=== PATIENT | male | born 1970 | race Caucasian/White ===

== ENCOUNTER 2019-04-15 00:37 | Emergency (ER) | payer MEDICAID ==
--- NOTE | 2019-04-15 00:54 | ED Physician Documentation ---
PD HPI DYSPNEA - Stated complaint Stated Complaint: SOA/CONGESTION - Chief complaint Chief Complaint: Resp - History obtained from History obtained from: Patient - History of Present Illness Timing - onset: How many weeks ago (1) Timing - details: Gradual onset Pain level now: 7 Improved by: Other (no ameliorating factors) Worsened by: Coughing, Other (deep inhalation) Associated symptoms: Fever (tactile/subjective (did not take temperature, but feels as though he's had fever, and s.o. says he has felt hot to touch)), Cough, Chest pain / discomfort. 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 denies: Palpitations, Pedal edema, Calf pain Respiratory: reports: Cough. denies: Dyspnea, Hemoptysis, Wheezing GI: reports: Reviewed and negative PD PAST MEDICAL HISTORY - Past Medical History Past Medical History: No - Present Medications Home Medications: Ambulatory Orders Medication Instructions Recorded Confirmed Benzonatate [Tessalon Perle] 100 - 200 mg PO TID PRN #30 capsule 04/15/19 Citalopram Hydrobromide [Celexa] 60 mg PO DAILY 04/15/19 04/15/19 Gabapentin [Neurontin] 300 mg PO BID 04/15/19 04/15/19 Hydrocodone/Acetaminophen 1 tab PO Q6HR PRN 04/15/19 04/15/19 [Hydrocodone-Acetamin 5-325 mg] Ibuprofen 800 mg PO TID 04/15/19 04/15/19 [place] 300 mg PO BID 04/15/19 04/15/19 Methocarbamol [Robaxin] 500 mg PO TID 04/15/19 04/15/19 - Allergies Allergies/Adverse Reactions: Allergies Allergy/AdvReac Type Severity Reaction Status Date / Time metoclopramide [From Reglan] Allergy Unknown Verified 04/15/19 00:46 - Living Situation Living Arrangement: reports: At home PD ED PE NORMAL - Vitals Vital signs reviewed: Yes - General General: Alert and oriented X 3, No acute distress, Well developed/nourished - HEENT HEENT: Moist mucous membranes, Pharynx benign - Neck Neck: Supple, no meningeal sign - Cardiac Cardiac: RRR, No murmur - Respiratory Respiratory: No respiratory distress, Clear bilaterally - Extremities Extremities: No edema Results - Vitals Vitals: Vital Signs - 24 hr 04/15/19 04/15/19 04/15/19 00:40 01:06 02:02 Temperature 36.5 C Heart Rate 82 85 86 Respiratory 18 16 19 Rate Blood Pressure 131/84 H 132/91 H 134/95 H O2 Saturation 98 97 96 04/15/19 04/15/19 02:59 03:40 Temperature Heart Rate 93 87 Respiratory 17 20 Rate Blood Pressure 128/98 H 140/87 H O2 Saturation 97 94 Oxygen O2 Source Room air - EKG (time done) No standard instances Rate: Rate (enter#) (46) Rhythm: NSR [place]: Normal Intervals: Normal [place] QRS: Normal Ischemia: Normal ST segments - Labs Labs: Laboratory Tests 04/15/19 04/15/19 04/15/19 00:55 00:55 00:55 WBC 7.8 RBC 4.24 L Hgb 13.3 L Hct 40.3 L MCV 95.0 H MCH 31.4 H MCHC 33.0 RDW 13.6 Plt Count 310 MPV 10.2 Neut # (Auto) 4.1 Lymph # (Auto) 2.3 [place] # (Auto) 0.6 Eos # (Auto) 0.7 Baso # (Auto) 0.1 Absolute Nucleated RBC 0.00 Nucleated RBC % 0.0 D-Dimer < 200.0 L Sodium 138 Potassium 4.6 Chloride 103 Carbon Dioxide 27 Anion Gap 8.0 BUN 12 Creatinine 1.0 Estimated GFR (MDRD) 79 L Glucose 143 H Calcium 9.2 Total Bilirubin 0.6 AST 25 ALT 32 Alkaline Phosphatase 53 Troponin I High Sens Total Protein 7.2 Albumin 4.3 Globulin 2.9 Albumin/Globulin Ratio 1.5 Lipase 31 04/15/19 00:55 WBC RBC Hgb Hct MCV MCH MCHC RDW Plt Count MPV Neut # (Auto) Lymph # (Auto) [place] # (Auto) Eos # (Auto) Baso # (Auto) Absolute Nucleated RBC Nucleated RBC % D-Dimer Sodium Potassium Chloride Carbon Dioxide Anion Gap BUN Creatinine Estimated GFR (MDRD) Glucose Calcium Total Bilirubin AST ALT Alkaline Phosphatase Troponin I High Sens 4.3 Total Protein Albumin Globulin Albumin/Globulin Ratio Lipase - Rads (name of study) chest xray Radiology: Prelim report reviewed, See rad report PD MEDICAL DECISION MAKING - ED course Complexity details: reviewed results, re-evaluated patient, considered differential, d/w patient ED course: reassuring test results including EKG, blood tests (including troponin and d- dimer), and cxr. Suspect bronchitis with pleurisy. He is already taking vicodin on a regular basis (filled #120 5/325 on 04/12/2019) and taking ibuprofen. He is not requesting pain medication and is polite and pleasant. Departure - Departure Disposition: 01 Home, Self Care Clinical Impression: Bronchitis Condition: Good Instructions: ED Upper Resp Infec No Abx Tx Prescriptions: Benzonatate [Tessalon Perle] 100 - 200 mg PO TID PRN #30 capsule PRN Reason: Cough Discharge Date/Time: 04/15/19 03:42
[2019-04-15 01:10] LABS: BASOPHILS # (AUTO) 0.1 10^3/uL (0.0-0.1); EOSINOPHILS # (AUTO) 0.7 10^3/uL (0.0-0.7); EOSINOPHILS % (AUTO) 8.4 %; HGB - HEMOGLOBIN 13.3 g/dL (14.0-18.0); LYMPHOCYTES # (AUTO) 2.3 10^3/uL (1.5-3.5); LYMPHOCYTES % (AUTO) 29.4 %; MEAN CORPUSCULAR HEMOGLOBIN 31.4 pg (27.0-31.0); MEAN PLATELET VOLUME 10.2 fL (7.4-11.4); MONOCYTES # (AUTO) 0.6 10^3/uL (0.0-1.0); MONOCYTES % (AUTO) 7.7 %; NEUTROPHILS # (AUTO) 4.1 10^3/uL (1.5-6.6); NEUTROPHILS % (AUTO) 52.9 %; PLT - PLATELET COUNT 310 10^3/uL (130-450); RED BLOOD COUNT 4.24 10^6/uL (4.70-6.10); RED CELL DISTRIBUTION WIDTH 13.6 % (12.0-15.0); WHITE BLOOD COUNT 7.8 x10^3/uL (4.8-10.8)
[2019-04-15 01:19] LABS: ALBUMIN 4.3 g/dL (3.2-5.5); ALBUMIN/GLOBULIN RATIO 1.5 (1.0-2.2); BILIRUBIN,TOTAL 0.6 mg/dL (0.2-1.0); CALCIUM 9.2 mg/dL (8.5-10.3); TOTAL PROTEIN 7.2 g/dL (6.7-8.2)
--- NOTE | 2019-04-15 02:52 | XRAY Report ---
Reason: chest pain, dyspnea Procedure Date: 04/15/2019 Accession Number: [id number] / [id number] Procedure: XR - Chest 2 View X-Ray CPT Code: 28836 Final Report FULL RESULT: EXAM: CHEST RADIOGRAPHY EXAM DATE: 04/15/2019 02:27 AM. CLINICAL HISTORY: Chest pain, dyspnea. COMPARISON: None. TECHNIQUE: 2 views. FINDINGS: Lungs/Pleura: No focal opacities evident. No pleural effusion. No pneumothorax. Normal volumes. Mediastinum: Heart and mediastinal contours are unremarkable. Other: None. IMPRESSION: Normal 2-view chest radiography. RADIA
[2019-04-15] MEDS ORDERED: BENZONATATE 100 MG CAPSULE PO STA (03:35)
[2019-04-15 03:40] VITALS: BP 140/87
== END 2019-04-15 03:42 | disposition home or self-care (01) ==
LOC: ED 00:37
DX: J40 Bronchitis, not specified as acute or chronic (principal); R07.81 Pleurodynia
CPT/HCPCS: 36415; 71046; 80053; 83690; 84484; 85025; 85379; 93005; 99284; A9270

== ENCOUNTER 2019-05-02 17:30 | Emergency (ER) | payer MEDICAID ==
--- NOTE | 2019-05-02 17:51 | XRAY Report ---
Reason: chest pain Procedure Date: 05/02/2019 Accession Number: [id number] / [id number] Procedure: XR - Chest 1 View X-Ray CPT Code: 76936 Final Report FULL RESULT: EXAM: CHEST RADIOGRAPHY EXAM DATE: 05/02/2019 05:43 PM. CLINICAL HISTORY: Chest pain. COMPARISON: CHEST 2 VIEW 04/15/2019 2:18 AM. TECHNIQUE: 1 view. FINDINGS: Lungs/Pleura: No focal opacities evident. No pleural effusion. No pneumothorax. Mediastinum: Within exam limitations, the cardiomediastinal contour is normal. Other: None. IMPRESSION: Normal single view chest. RADIA
[2019-05-02 17:56] LABS: BASOPHILS # (AUTO) 0.1 10^3/uL (0.0-0.1); BASOPHILS % (AUTO) 0.7 %; EOSINOPHILS # (AUTO) 0.5 10^3/uL (0.0-0.7); EOSINOPHILS % (AUTO) 3.9 %; HGB - HEMOGLOBIN 15.3 g/dL (14.0-18.0); LYMPHOCYTES # (AUTO) 3.1 10^3/uL (1.5-3.5); LYMPHOCYTES % (AUTO) 24.8 %; MEAN CORPUSCULAR HEMOGLOBIN 31.3 pg (27.0-31.0); MEAN CORPUSCULAR HGB CONC 33.6 g/dL (32.0-36.0); MEAN PLATELET VOLUME 9.7 fL (7.4-11.4); MONOCYTES # (AUTO) 0.8 10^3/uL (0.0-1.0); MONOCYTES % (AUTO) 6.1 %; NEUTROPHILS % (AUTO) 63.9 %; PLT - PLATELET COUNT 441 10^3/uL (130-450); RED BLOOD COUNT 4.89 10^6/uL (4.70-6.10); RED CELL DISTRIBUTION WIDTH 13.5 % (12.0-15.0); WHITE BLOOD COUNT 12.5 x10^3/uL (4.8-10.8)
[2019-05-02 18:12] LABS: ALBUMIN 4.6 g/dL (3.2-5.5); ALBUMIN/GLOBULIN RATIO 1.5 (1.0-2.2); BILIRUBIN,TOTAL 0.2 mg/dL (0.2-1.0); CALCIUM 9.1 mg/dL (8.5-10.3); TOTAL PROTEIN 7.7 g/dL (6.7-8.2)
[2019-05-02] MEDS ORDERED: ASPIRIN CHEW 81 MG TABLET PO STA (18:17)
[2019-05-02] MEDS: NITROGLYCERIN SL 0.4 MG TABLET SL STA ×2 (18:21→18:27)
[2019-05-02] MEDS: MORPHINE 2 MG/ML CARPUJECT IVP STA ×2 (18:33)
--- NOTE | 2019-05-02 18:36 | ED Physician Documentation ---
PD HPI CHEST PAIN - Stated complaint Stated Complaint: CP - Chief complaint Chief Complaint: Cardiac - History obtained from History obtained from: Patient, Family - History of Present Illness Timing - onset: Today (At about 130 today he developed a sharp chest pain anterior lower left radiating to the left shoulder but not the back. Its associated with sweatiness but no shortness of breath, dizziness, or nausea. Is never had this before. No recent travel. It is been constant and slightly worsening since this afternoon. No history of heart issues.) Review of Systems Constitutional: denies: Fever, Chills Throat: denies: Sore throat Cardiac: reports: Chest pain / pressure. denies: Palpitations Respiratory: denies: Dyspnea, Cough GI: denies: Abdominal Pain, Nausea, Vomiting PD PAST MEDICAL HISTORY - Past Medical History Past Medical History: Yes Cardiovascular: None Respiratory: None Endocrine/Autoimmune: None GI: None : None HEENT: None Psych: Depression, Anxiety, Bipolar disorder, Post traumatic stress disorder Musculoskeletal: Osteoarthritis Derm: None - Past Surgical History Past Surgical History: Yes General: Appendectomy Ortho: Spine surgery, Other - Present Medications Home Medications: Ambulatory Orders Medication Instructions Recorded Confirmed Benzonatate [Tessalon Perle] 100 - 200 mg PO TID PRN #30 capsule 04/15/19 Citalopram Hydrobromide [Celexa] 60 mg PO DAILY 04/15/19 04/15/19 Gabapentin [Neurontin] 300 mg PO BID 04/15/19 04/15/19 Hydrocodone/Acetaminophen 1 tab PO Q6HR PRN 04/15/19 04/15/19 [Hydrocodone-Acetamin 5-325 mg] Ibuprofen 800 mg PO TID 04/15/19 04/15/19 [place] 300 mg PO BID 04/15/19 04/15/19 Methocarbamol [Robaxin] 500 mg PO TID 04/15/19 04/15/19 - Allergies Allergies/Adverse Reactions: Allergies Allergy/AdvReac Type Severity Reaction Status Date / Time metoclopramide [From Reglan] Allergy Unknown Verified 05/02/19 17:37 - Social History Does the pt smoke?: No Smoking Status: Former smoker Does the pt drink ETOH?: No Does the pt have substance abuse?: No - Immunizations Immunizations are current?: Yes - POLST Patient has POLST: No PD ED PE NORMAL - Vitals Vital signs reviewed: Yes - General General: Alert and oriented X 3, No acute distress - HEENT HEENT: PERRL, EOMI, Ears normal, Pharynx benign - Neck Neck: Supple, no meningeal sign, No bony TTP - Cardiac Cardiac: RRR, No murmur - Respiratory Respiratory: No respiratory distress, Clear bilaterally - Abdomen Abdomen: Non tender - Back Back: No CVA TTP, No spinal TTP - Extremities Extremities: No edema, No calf tenderness / cord - Neuro Neuro: Alert and oriented X 3, Normal speech Results - Vitals Vitals: Vital Signs - 24 hr 05/02/19 05/02/19 05/02/19 17:37 18:05 18:26 Temperature 37 C 37 C Heart Rate 105 H 104 H 95 Respiratory 17 14 12 Rate Blood Pressure 169/91 H 155/112 H 126/102 H O2 Saturation 100 99 98 05/02/19 05/02/19 05/02/19 18:34 18:53 19:19 Temperature 37 C Heart Rate 104 H 89 96 Respiratory 12 16 12 Rate Blood Pressure 136/78 H 136/78 H 115/75 O2 Saturation 97 98 99 05/02/19 20:00 Temperature Heart Rate 71 Respiratory Rate Blood Pressure 111/90 H O2 Saturation 98 Oxygen O2 Source Room air - EKG (time done) 1733 Rate: Rate (enter#) (103) Rhythm: Sinus tachycardia [place]: Normal Intervals: Normal [place] QRS: Normal Ischemia: Normal ST segments Computer interpretation: Agree with computer - Labs Labs: Laboratory Tests 05/02/19 05/02/19 05/02/19 17:37 17:50 17:50 WBC 12.5 H RBC 4.89 Hgb 15.3 Hct 45.5 MCV 93.0 MCH 31.3 H MCHC 33.6 RDW 13.5 Plt Count 441 MPV 9.7 Neut # (Auto) 8.0 H Lymph # (Auto) 3.1 [place] # (Auto) 0.8 Eos # (Auto) 0.5 Baso # (Auto) 0.1 Absolute Nucleated RBC 0.00 Nucleated RBC % 0.0 D-Dimer Sodium 138 Potassium 3.8 Chloride 104 Carbon Dioxide 25 Anion Gap 9.0 BUN 20 Creatinine 1.0 Estimated GFR (MDRD) 79 L Glucose 130 H Calcium 9.1 Total Bilirubin 0.2 AST 20 ALT 30 Alkaline Phosphatase 67 Troponin I High Sens 3.1 Total Protein 7.7 Albumin 4.6 Globulin 3.1 Albumin/Globulin Ratio 1.5 Lipase 38 05/02/19 05/02/19 17:50 19:48 WBC RBC Hgb Hct MCV MCH MCHC RDW Plt Count MPV Neut # (Auto) Lymph # (Auto) [place] # (Auto) Eos # (Auto) Baso # (Auto) Absolute Nucleated RBC Nucleated RBC % D-Dimer < 200.0 L Sodium Potassium Chloride Carbon Dioxide Anion Gap BUN Creatinine Estimated GFR (MDRD) Glucose Calcium Total Bilirubin AST ALT Alkaline Phosphatase Troponin I High Sens 2.7 Total Protein Albumin Globulin Albumin/Globulin Ratio Lipase PD MEDICAL DECISION MAKING - ED course ED course: 48-year-old gentleman presents with chest pain that is been going on for several hours now, his EKG is nonischemic. He is a little tachycardic, initial troponin and d-dimer were negative. Given the severity of the pain he was kept around for another troponin after couple of hours which was also negative. Chest x-ray was negative. ED i.e. reviewed, 16th emergency department visit in the last 12 months for a variety of complaints including chest pain and psychiatric issues, also note per the CONSERVATION WORKER he gets a fair amount of hydrocodone from his primary care physician every month, usually 180 to 200 pills, last fill was on the and he admits he is out. Departure - Departure Disposition: 01 Home, Self Care Clinical Impression: Atypical chest pain Condition: Good Record reviewed to determine appropriate education?: Yes Instructions: ED Chest Pain Atypical Unkn Cause Comments: Return for new or worsening symptoms, follow-up with your primary care physician, next available appointment.
[2019-05-02] MEDS ORDERED: HYDROmorphone 1 MG/ML CARPUJECT IVP STA (19:14)
[2019-05-02] MEDS ORDERED: KETOROLAC 30 MG/ML VIAL IVP STA (20:16)
[2019-05-02 20:36] VITALS: BP 123/85
== END 2019-05-02 20:42 | disposition home or self-care (01) ==
LOC: ED 17:30
DX: R07.89 Other chest pain (principal); Z87.891 Personal history of nicotine dependence
CPT/HCPCS: 36415; 71045; 80053; 83690; 84484; 85025; 85379; 93005; 96374; 96375; 99284; A9270; J1170